=== PATIENT | male | born 1935 | race Caucasian/White ===

== ENCOUNTER 2022-06-18 20:33 | Inpatient (IN) | payer MEDICARE, OTHER ==
[~2022-06-18] VITALS: Ht 167.6 cm; Wt 94.9 kg
[2022-06-18 21:03] LABS: BASOPHILS % (AUTO) 0.6 % (0.0-2.0); EOSINOPHILS % (AUTO) 1.8 % (1.0-6.0); HEMATOCRIT 46.6 % (41-53); HEMOGLOBIN 14.6 g/dL (13.5-17.5); LYMPHOCYTES # (AUTO) 1.5 K/uL (1.0-4.8); LYMPHOCYTES % (AUTO) 19.8 % (22.0-44.0); MEAN CORPUSCULAR HEMOGLOBIN 27.9 pg (26.0-34.0); MEAN CORPUSCULAR HGB CONC 31.3 G/dL (31.0-37.0); MEAN CORPUSCULAR VOLUME 89 fL (80-100); MONOCYTES # (AUTO) 0.7 K/uL (0.1-1.0); MONOCYTES % (AUTO) 8.5 % (2.0-9.0); NEUTROPHILS # (AUTO) 5.4 K/uL (1.8-7.7); NEUTROPHILS % (AUTO) 69.3 % (40.0-70.0); PLATELET COUNT (AUTO) 219 K/uL (150-450); RED BLOOD CELL COUNT(AUTO) 5.23 MIL/uL (4.50-5.90)
[2022-06-18] MEDS ORDERED: IOHEXOL 350 MG/ML 100 ML VIAL ONE (21:05)
[2022-06-18] MEDS ORDERED: SODIUM CHLORIDE 0.9% 100 ML ONE (21:05)
[2022-06-18 21:14] LABS: CALCIUM, TOTAL 9.2 mg/dL (8.8-10.5); CREATININE 2.1 mg/dL (0.60-1.30); POTASSIUM 3.9 mmol/L (3.5-5.1)
[2022-06-18 21:15] LABS: PROTHROMBIN TIME 10.4 SEC (9.4-11.6)
[2022-06-18 21:20] LABS: ALBUMIN 3.3 g/dL (3.4-5.0); BILIRUBIN,TOTAL 0.5 mg/dL (0.1-1.0); TOTAL PROTEIN, SERUM 7.2 g/dL (6.4-8.2)
[2022-06-18 21:44] LABS: THYROID STIMULATING HORMONE 3.24 uIU/mL (0.36-3.74)
[2022-06-18 21:54] LABS: APPEARANCE,URINE CLEAR (CLEAR); BILIRUBIN,URINE NEGATIVE (NEGATIVE); GLUCOSE, URINE (UA) TRACE mg/dL (NEGATIVE); KETONES,URINE NEGATIVE (NEGATIVE); LEUKOCYTE ESTERASE ,URINE NEGATIVE (NEGATIVE); NITRATE,URINE NEGATIVE (NEGATIVE); OCCULT BLOOD,URINE TRACE (NEGATIVE); PROTEIN,URINE 300-600,SEE CONFIRM mg/dL (NEGATIVE); SPECIFIC GRAVITIY, URINE 1.028 (1.003-1.030); UROBILINOGEN,URINE <=1.0 mg/dL (<=1.0)
[2022-06-18 22:00] LABS: AMPHET/METH SCREEN,URINE NEGATIVE (NEGATIVE); BARBITURATE SCREEN, URINE NEGATIVE (NEGATIVE); BENZODIAZEPINES SCREEN,URINE NEGATIVE (NEGATIVE); CANNABINOID SCREEN,URINE NEGATIVE (NEGATIVE); COCAINE SCREEN,URINE NEGATIVE (NEGATIVE); METHADONE SCREEN, URINE NEGATIVE (NEGATIVE); OPIATE SCREEN,URINE NEGATIVE (NEGATIVE)
[2022-06-18] MEDS ORDERED: LEVOFLOXACIN 750 MG/D5% WATER 150 ML IV ONE (22:00)
[2022-06-18] MEDS ORDERED: ASPIRIN 300 MG RECTAL SUPPOSITORY PR ONE (22:00)
[2022-06-18 22:01] LABS: BACTERIA,URINE Rare /HPF (None Seen); SQUAMOUS EPITHELIAL CELL,UR Rare /LPF (None Seen); SULFOSALICYLIC ACID,URINE 3+ (Negative); WBC,URINE 0-2 /HPF (0-5)
[2022-06-18 22:02] LABS: PHENCYCLIDINE SCREEN,URINE NEGATIVE (NEGATIVE)
[2022-06-18 22:05] LABS: COVID AG,FIA SOURCE NASAL SWAB
[2022-06-18] MEDS ORDERED: FUROSEMIDE 40 MG/4 ML VIAL IVP ONE (22:30)
[2022-06-18] MEDS ORDERED: DEXTROSE 50%-WATER 25 GM/50 ML SYRINGE IVP PRN (22:45)
[2022-06-18] MEDS ORDERED: *CLINICAL-LEVOFLOXACIN IVPB DOSING CLINICAL ONE (23:00)
[2022-06-18 23:06] LABS: CHOL/HDL RATIO 4.4 (4.2-7.3)
[2022-06-18] MEDS: LEVOFLOXACIN 750 MG/D5% WATER 150 ML IV SCH (23:16)
[2022-06-19 00:42] LABS: ERYTHROCYTE SEDIMENTATION RATE 18 MM/HR (0-15)
[2022-06-19] MEDS ORDERED: AmLODIPine BESYLATE 5 MG TABLET PO SCH (18:00)
[2022-06-19] MEDS: ASPIRIN 300 MG RECTAL SUPPOSITORY PR SCH (20:00)
[2022-06-19 21:30] VITALS: BP 174/100
[2022-06-20 00:21] VITALS: BP 162/94
[2022-06-20 01:47] LABS: GLUCOMETER DEV NAME(LOC) 5N.1C; GLUCOSE,POINT OF CARE 111 MG/DL (70-110)
[2022-06-20 04:33] VITALS: BP 151/96
[2022-06-20 07:06] LABS: GLUCOMETER DEV NAME(LOC) 5N.1C; GLUCOSE,POINT OF CARE 96 MG/DL (70-110)
[2022-06-20 07:13] LABS: BASOPHILS % (AUTO) 0.2 % (0.0-2.0); EOSINOPHILS % (AUTO) 0.2 % (1.0-6.0); HEMATOCRIT 50.1 % (41-53); HEMOGLOBIN 15.5 g/dL (13.5-17.5); LYMPHOCYTES # (AUTO) 1.2 K/uL (1.0-4.8); LYMPHOCYTES % (AUTO) 12.1 % (22.0-44.0); MEAN CORPUSCULAR HEMOGLOBIN 28.1 pg (26.0-34.0); MEAN CORPUSCULAR VOLUME 91 fL (80-100); MONOCYTES % (AUTO) 9.5 % (2.0-9.0); NEUTROPHILS # (AUTO) 7.8 K/uL (1.8-7.7); PLATELET COUNT (AUTO) 215 K/uL (150-450); RED BLOOD CELL COUNT(AUTO) 5.53 MIL/uL (4.50-5.90); RED CELL DISTRIBUTION WIDTH 15.2 % (11.5-14.5)
[2022-06-20 07:33] LABS: ALBUMIN 2.8 g/dL (3.4-5.0); BILIRUBIN,TOTAL 1.1 mg/dL (0.1-1.0); CALCIUM, TOTAL 9.4 mg/dL (8.8-10.5); CREATININE 1.85 mg/dL (0.60-1.30); POTASSIUM 5.5 mmol/L (3.5-5.1)
[2022-06-20 08:20] VITALS: BP 148/93
[2022-06-20] MEDS: ASPIRIN 300 MG RECTAL SUPPOSITORY PR SCH (08:42)
[2022-06-20] MEDS ORDERED: PERFLUTREN PROTEIN-A MICROSPHERES 0.22 MG/ML 3 ML VIAL IVP ONE ×2 (08:45→16:34)
[2022-06-20] MEDS ORDERED: SODIUM CHLORIDE 0.9% 1,000 ML IV ONE (11:15)
[2022-06-20 12:00] VITALS: BP 138/94
[2022-06-20] MEDS: HEPARIN SODIUM,PORCINE 5,000 UNITS/ML VIAL SQ SCH ×3 (13:26→23:44)
[2022-06-20] MEDS: ATORVASTATIN CALCIUM 40 MG TABLET NG SCH (14:39)
[2022-06-20] MEDS: AmLODIPine BESYLATE 5 MG TABLET NG SCH (14:40)
[2022-06-20 14:49] LABS: ABG BASE EXCESS 5.6 mmol/L (-2.0-3.0); ABG CARBOXYHEMOGLOBIN 1.5 % (0.0-1.5); ABG HCO3 27.2 mmol/L (22.0-26.0); ABG METHEMOGLOBIN 0.3 % (0.0-1.5); ABG OXYGEN CONTENT 21.7 mL/dL (15.0-23.0); ABG OXYGEN SATURATION 97.5 % (95.0-98.0); ABG OXYHEMOGLOBIN 95.7 % (94.0-100.0); ABG PH 7.291 (7.35-7.450); ABG TOTAL HEMOGLOBIN 16.1 G/dL (12.0-18.0); SOURCE, BLOOD GAS ARTERIAL; TEMPERATURE, FAHRENHEIT, BG 98.1 FAHREN (96.0-98.6)
[2022-06-20 14:51] LABS: ABG PCO2 68 mmHg (35-45); O2 DEVICE,BLOOD GAS NC (ROOM AIR); SITE, BLOOD GAS LFT RADIAL
[2022-06-20 16:00] VITALS: BP 160/88
[2022-06-20 18:01] LABS: GLUCOMETER DEV NAME(LOC) 5S.1B; GLUCOSE,POINT OF CARE 98 MG/DL (70-110)
[2022-06-20 18:56] LABS: GLUCOMETER DEV NAME(LOC) 5N.1C; GLUCOSE,POINT OF CARE 102 MG/DL (70-110)
[2022-06-20 19:35] VITALS: BP 139/84
[2022-06-20 23:27] LABS: GLUCOMETER DEV NAME(LOC) 5S.1B; GLUCOSE,POINT OF CARE 107 MG/DL (70-110)
[2022-06-20] MEDS: LEVOFLOXACIN 750 MG/D5% WATER 150 ML IV SCH (23:43)
[2022-06-21] VITALS: BP 140/70
[2022-06-21 03:08] LABS: ABG BASE EXCESS 6.7 mmol/L (-2.0-3.0); ABG CARBOXYHEMOGLOBIN 0.3 % (0.0-1.5); ABG HCO3 28.3 mmol/L (22.0-26.0); ABG METHEMOGLOBIN 0.3 % (0.0-1.5); ABG OXYGEN CONTENT 21.3 mL/dL (15.0-23.0); ABG OXYGEN SATURATION 98.6 % (95.0-98.0); ABG PH 7.301 (7.35-7.450); ABG TOTAL HEMOGLOBIN 15.3 G/dL (12.0-18.0); PO2, ARTERIAL BG 137.1 mmHg (71.0-79.0); SOURCE, BLOOD GAS ARTERIAL; TEMPERATURE, FAHRENHEIT, BG 98.6 FAHREN (96.0-98.6)
[2022-06-21 03:09] LABS: ABG PCO2 69 mmHg (35-45); O2 DEVICE,BLOOD GAS BIPAP (ROOM AIR); SITE, BLOOD GAS RT RADIAL
[2022-06-21 03:55] VITALS: BP 133/82
[2022-06-21 08:03] VITALS: BP 159/79
[2022-06-21 08:41] LABS: GLUCOMETER DEV NAME(LOC) 5N.1C; GLUCOSE,POINT OF CARE 96 MG/DL (70-110)
[2022-06-21] MEDS: HEPARIN SODIUM,PORCINE 5,000 UNITS/ML VIAL SQ SCH ×2 (09:13→17:23)
[2022-06-21] MEDS: ATORVASTATIN CALCIUM 40 MG TABLET NG SCH (09:13)
[2022-06-21] MEDS: AmLODIPine BESYLATE 5 MG TABLET NG SCH (09:13)
[2022-06-21] MEDS: ASPIRIN 81 MG CHEWABLE TABLET NG SCH (09:14)
[2022-06-21 11:49] VITALS: BP 158/85
[2022-06-21] MEDS ORDERED: AmLODIPine BESYLATE 5 MG TABLET PO ONE (12:00)
[2022-06-21] MEDS ORDERED: FUROSEMIDE 20 MG/2 ML VIAL IVP ONE (12:30)
[2022-06-21 13:56] LABS: GLUCOMETER DEV NAME(LOC) 5N.1C; GLUCOSE,POINT OF CARE 107 MG/DL (70-110)
[2022-06-21 15:50] LABS: CALCIUM, TOTAL 9.1 mg/dL (8.8-10.5); CREATININE 2.64 mg/dL (0.60-1.30); POTASSIUM 4.6 mmol/L (3.5-5.1)
[2022-06-21 15:55] VITALS: BP 161/96
[2022-06-21 20:39] VITALS: BP 157/91
[2022-06-21] MEDS ORDERED: CARVEDILOL 3.125 MG TABLET PO SCH (21:00)
[2022-06-21 21:46] LABS: GLUCOMETER DEV NAME(LOC) 5N.3; GLUCOSE,POINT OF CARE 112 MG/DL (70-110)
[2022-06-22] MEDS: HEPARIN SODIUM,PORCINE 5,000 UNITS/ML VIAL SQ SCH ×4 (00:25→23:27)
[2022-06-22] MEDS: HydrALAZINE HCL 20 MG/ML VIAL IVP PRN (00:25)
[2022-06-22 00:30] VITALS: BP 179/99
[2022-06-22 00:51] LABS: GLUCOMETER DEV NAME(LOC) 5N.1C; GLUCOSE,POINT OF CARE 110 MG/DL (70-110)
[2022-06-22 04:55] VITALS: BP 162/85
[2022-06-22 06:43] LABS: CALCIUM, TOTAL 9.2 mg/dL (8.8-10.5); CREATININE 2.32 mg/dL (0.60-1.30); POTASSIUM 4.4 mmol/L (3.5-5.1)
[2022-06-22 06:56] LABS: GLUCOMETER DEV NAME(LOC) 5S.1B; GLUCOSE,POINT OF CARE 121 MG/DL (70-110)
[2022-06-22 08:22] VITALS: BP 159/100
[2022-06-22] MEDS: ASPIRIN 81 MG CHEWABLE TABLET NG SCH (08:49)
[2022-06-22] MEDS: ATORVASTATIN CALCIUM 40 MG TABLET NG SCH (08:49)
[2022-06-22] MEDS ORDERED: AmLODIPine BESYLATE 5 MG TABLET PO SCH (09:00)
[2022-06-22] MEDS ORDERED: AmLODIPine BESYLATE 5 MG TABLET NG SCH (09:00)
[2022-06-22 11:18] VITALS: BP 146/77
[2022-06-22 11:18] LABS: ABG BASE EXCESS 6.6 mmol/L (-2.0-3.0); ABG CARBOXYHEMOGLOBIN 0.8 % (0.0-1.5); ABG HCO3 28.1 mmol/L (22.0-26.0); ABG METHEMOGLOBIN 0.3 % (0.0-1.5); ABG OXYGEN CONTENT 20.7 mL/dL (15.0-23.0); ABG OXYGEN SATURATION 97.5 % (95.0-98.0); ABG OXYHEMOGLOBIN 96.4 % (94.0-100.0); ABG PH 7.294 (7.35-7.450); ABG TOTAL HEMOGLOBIN 15.2 G/dL (12.0-18.0); PO2, ARTERIAL BG 99.3 mmHg (71.0-79.0); SOURCE, BLOOD GAS ARTERIAL; TEMPERATURE, FAHRENHEIT, BG 98.3 FAHREN (96.0-98.6)
[2022-06-22 11:21] LABS: ABG PCO2 70 mmHg (35-45); SITE, BLOOD GAS RT BRACHIAL
[2022-06-22 11:22] LABS: O2 DEVICE,BLOOD GAS BIPAP (ROOM AIR); SPONTANEOUS VT, BG 517 ml
[2022-06-22 11:23] LABS: INSPIRATORY TIME, BG 0.9 SEC
[2022-06-22 11:52] LABS: GLUCOMETER DEV NAME(LOC) 5S.1B; GLUCOSE,POINT OF CARE 117 MG/DL (70-110)
[2022-06-22] MEDS: CARVEDILOL 6.25 MG TABLET PO SCH ×2 (13:46→20:21)
[2022-06-22 15:14] VITALS: BP 144/83
[2022-06-22 18:11] LABS: GLUCOMETER DEV NAME(LOC) 5S.1B; GLUCOSE,POINT OF CARE 112 MG/DL (70-110)
[2022-06-22 20:30] VITALS: BP 162/92
[2022-06-22 21:46] LABS: GLUCOMETER DEV NAME(LOC) 5S.1B; GLUCOSE,POINT OF CARE 132 MG/DL (70-110)
[2022-06-22] MEDS: LEVOFLOXACIN 750 MG/D5% WATER 150 ML IV SCH (23:26)
[2022-06-23] VITALS (7 sets, daily range): BP systolic 142–160; BP diastolic 76–111
[2022-06-23] MEDS: INSULIN LISPRO 100 UNITS/ML SQ PRN ×3 (06:12→17:30)
[2022-06-23 06:21] LABS: GLUCOMETER DEV NAME(LOC) 5S.2B; GLUCOSE,POINT OF CARE 156 MG/DL (70-110)
[2022-06-23] MEDS: ATORVASTATIN CALCIUM 40 MG TABLET NG SCH (08:48)
[2022-06-23] MEDS: ASPIRIN 81 MG CHEWABLE TABLET NG SCH (08:48)
[2022-06-23] MEDS: HEPARIN SODIUM,PORCINE 5,000 UNITS/ML VIAL SQ SCH ×2 (08:48→16:49)
[2022-06-23] MEDS: CARVEDILOL 6.25 MG TABLET PO SCH ×2 (08:48→20:26)
[2022-06-23 08:51] LABS: CALCIUM, TOTAL 9.6 mg/dL (8.8-10.5); CREATININE 2.11 mg/dL (0.60-1.30); POTASSIUM 4.4 mmol/L (3.5-5.1)
[2022-06-23 11:05] LABS: ABG BASE EXCESS 6.8 mmol/L (-2.0-3.0); ABG CARBOXYHEMOGLOBIN 0.3 % (0.0-1.5); ABG HCO3 28.5 mmol/L (22.0-26.0); ABG METHEMOGLOBIN 0.2 % (0.0-1.5); ABG OXYGEN CONTENT 20.8 mL/dL (15.0-23.0); ABG OXYGEN SATURATION 93.7 % (95.0-98.0); ABG OXYHEMOGLOBIN 93.2 % (94.0-100.0); ABG PCO2 61 mmHg (35-45); ABG PH 7.345 (7.35-7.450); ABG TOTAL HEMOGLOBIN 15.9 G/dL (12.0-18.0); SOURCE, BLOOD GAS ARTERIAL; TEMPERATURE, FAHRENHEIT, BG 97.8 FAHREN (96.0-98.6)
[2022-06-23 11:09] LABS: ABG A-A DIFF O2 147.5 mmHg (10-20.0); O2 DEVICE,BLOOD GAS BIPAP (ROOM AIR); SITE, BLOOD GAS RT RADIAL
[2022-06-23 11:10] LABS: SPONTANEOUS VT, BG 474 ml
[2022-06-23 17:36] LABS: GLUCOMETER DEV NAME(LOC) 5S.1B; GLUCOSE,POINT OF CARE 147 MG/DL (70-110)
[2022-06-23 18:56] LABS: GLUCOMETER DEV NAME(LOC) 5S.2B; GLUCOSE,POINT OF CARE 145 MG/DL (70-110)
[2022-06-24] MEDS: HEPARIN SODIUM,PORCINE 5,000 UNITS/ML VIAL SQ SCH ×4 (00:15→23:05)
[2022-06-24 04:04] VITALS: BP 159/85
[2022-06-24] MEDS: INSULIN LISPRO 100 UNITS/ML SQ PRN ×3 (06:09→20:50)
[2022-06-24 07:31] VITALS: BP 161/98
[2022-06-24] MEDS: ASPIRIN 81 MG CHEWABLE TABLET NG SCH (07:49)
[2022-06-24] MEDS: AmLODIPine BESYLATE 5 MG TABLET NG SCH (07:49)
[2022-06-24] MEDS: ATORVASTATIN CALCIUM 40 MG TABLET NG SCH (07:49)
[2022-06-24] MEDS: CARVEDILOL 6.25 MG TABLET PO SCH ×2 (07:49→20:49)
[2022-06-24] MEDS: FUROSEMIDE 20 MG/2 ML VIAL IVP SCH ×2 (10:13→20:49)
[2022-06-24 10:41] LABS: GLUCOMETER DEV NAME(LOC) 5S.1B; GLUCOSE,POINT OF CARE 127 MG/DL (70-110)
[2022-06-24 10:42] LABS: GLUCOMETER DEV NAME(LOC) 5S.1B; GLUCOSE,POINT OF CARE 154 MG/DL (70-110)
[2022-06-24 11:11] VITALS: BP 133/95
[2022-06-24 13:55] LABS: ABG METHEMOGLOBIN 0.3 % (0.0-1.5); ABG OXYGEN SATURATION 97.3 % (95.0-98.0); SOURCE, BLOOD GAS ARTERIAL; TEMPERATURE, FAHRENHEIT, BG 97.7 FAHREN (96.0-98.6)
[2022-06-24 14:13] LABS: ABG CARBOXYHEMOGLOBIN 0.9 % (0.0-1.5); ABG HCO3 32.3 mmol/L (22.0-26.0); ABG OXYGEN CONTENT 21.1 mL/dL (15.0-23.0); ABG OXYHEMOGLOBIN 96.1 % (94.0-100.0); ABG PCO2 59 mmHg (35-45); ABG PH 7.399 (7.35-7.450); ABG TOTAL HEMOGLOBIN 15.6 G/dL (12.0-18.0); PO2, ARTERIAL BG 89.5 mmHg (71.0-79.0)
[2022-06-24 14:14] LABS: O2 DEVICE,BLOOD GAS BIPAP (ROOM AIR); SITE, BLOOD GAS LFT RADIAL; SPONTANEOUS VT, BG 616 ml
[2022-06-24 14:15] LABS: INSPIRATORY TIME, BG 0.9 SEC
[2022-06-24 15:33] VITALS: BP 146/83
[2022-06-24] MEDS: SCOPOLAMINE HYDROBROMIDE 1 MG/72 HOUR PATCH TD SCH (17:16)
[2022-06-24 17:56] LABS: GLUCOMETER DEV NAME(LOC) 5S.2B; GLUCOSE,POINT OF CARE 159 MG/DL (70-110)
[2022-06-24 19:24] VITALS: BP 155/93
[2022-06-24 22:46] LABS: GLUCOMETER DEV NAME(LOC) 5S.2B; GLUCOSE,POINT OF CARE 154 MG/DL (70-110)
[2022-06-24 22:46] LABS: GLUCOMETER DEV NAME(LOC) 5S.1B; GLUCOSE,POINT OF CARE 139 MG/DL (70-110)
[2022-06-24] MEDS: LEVOFLOXACIN 750 MG/D5% WATER 150 ML IV SCH (23:04)
[2022-06-24] MEDS ORDERED: SODIUM CHLORIDE 0.9% 250 ML IV ONE (23:11)
[2022-06-24 23:25] VITALS: BP 139/99
[2022-06-25 04:28] VITALS: BP 156/86
[2022-06-25 06:11] LABS: GLUCOMETER DEV NAME(LOC) 5S.1B; GLUCOSE,POINT OF CARE 127 MG/DL (70-110)
[2022-06-25 07:01] LABS: BASOPHILS % (AUTO) 0.3 % (0.0-2.0); EOSINOPHILS % (AUTO) 0.9 % (1.0-6.0); HEMATOCRIT 49.5 % (41-53); HEMOGLOBIN 15.6 g/dL (13.5-17.5); LYMPHOCYTES # (AUTO) 0.8 K/uL (1.0-4.8); LYMPHOCYTES % (AUTO) 9.9 % (22.0-44.0); MEAN CORPUSCULAR HGB CONC 31.5 G/dL (31.0-37.0); MEAN CORPUSCULAR VOLUME 89 fL (80-100); MONOCYTES # (AUTO) 0.8 K/uL (0.1-1.0); MONOCYTES % (AUTO) 9.5 % (2.0-9.0); NEUTROPHILS # (AUTO) 6.6 K/uL (1.8-7.7); NEUTROPHILS % (AUTO) 79.4 % (40.0-70.0); PLATELET COUNT (AUTO) 226 K/uL (150-450); RED BLOOD CELL COUNT(AUTO) 5.58 MIL/uL (4.50-5.90)
[2022-06-25 07:23] LABS: ALBUMIN 2.2 g/dL (3.4-5.0); BILIRUBIN,TOTAL 0.4 mg/dL (0.1-1.0); CALCIUM, TOTAL 9.9 mg/dL (8.8-10.5); CREATININE 2.27 mg/dL (0.60-1.30); POTASSIUM 4.1 mmol/L (3.5-5.1); TOTAL PROTEIN, SERUM 6.6 g/dL (6.4-8.2)
[2022-06-25 07:45] VITALS: BP 153/88
[2022-06-25] MEDS: ATORVASTATIN CALCIUM 40 MG TABLET NG SCH (08:30)
[2022-06-25] MEDS: ASPIRIN 81 MG CHEWABLE TABLET NG SCH (08:30)
[2022-06-25] MEDS: CARVEDILOL 6.25 MG TABLET PO SCH ×2 (08:30→21:21)
[2022-06-25] MEDS: FUROSEMIDE 20 MG/2 ML VIAL IVP SCH ×2 (08:31→21:21)
[2022-06-25] MEDS: HEPARIN SODIUM,PORCINE 5,000 UNITS/ML VIAL SQ SCH ×2 (08:31→16:20)
[2022-06-25] MEDS: AmLODIPine BESYLATE 5 MG TABLET NG SCH (09:00)
[2022-06-25] MEDS ORDERED: *CLINICAL-AZTREONAM DOSING CLINICAL ONE (09:45)
[2022-06-25] MEDS ORDERED: AZTREONAM 1 GM in DEXTROSE 5%-WATER 50 ML IV ONE ×2 (10:00→16:00)
[2022-06-25] MEDS: ALBUTEROL SULFATE 2.5 MG/0.5 ML NEB SOLUTION NEB SCH ×4 (11:17→23:11)
[2022-06-25] MEDS: IPRATROPIUM BROMIDE 0.5 MG/2.5 ML NEB SOLUTION NEB SCH ×4 (11:17→23:11)
[2022-06-25] MEDS: ACETYLCYSTEINE 10% 100 MG/ML 4 ML NEB SOLUTION NEB SCH ×4 (11:17→23:11)
[2022-06-25 12:00] VITALS: BP 158/76
[2022-06-25] MEDS: EMPAGLIFLOZIN 10 MG TABLET PO SCH (12:44)
[2022-06-25 16:00] VITALS: BP 156/96
[2022-06-25] MEDS: INSULIN LISPRO 100 UNITS/ML SQ PRN ×2 (17:31→21:49)
[2022-06-25 17:32] LABS: GLUCOSE,POINT OF CARE 126 MG/DL (70-110)
[2022-06-25 20:00] VITALS: BP 151/77
[2022-06-26] VITALS: BP 149/87
[2022-06-26] MEDS ORDERED: SODIUM CHLORIDE 0.9% 250 ML IV ONE (00:51)
[2022-06-26] MEDS: HEPARIN SODIUM,PORCINE 5,000 UNITS/ML VIAL SQ SCH ×4 (00:55→23:19)
[2022-06-26] MEDS: AZTREONAM 0.5 GM in DEXTROSE 5%-WATER 50 ML IV SCH ×4 (00:59→23:19)
[2022-06-26] MEDS: ACETYLCYSTEINE 10% 100 MG/ML 4 ML NEB SOLUTION NEB SCH ×5 (02:51→21:00)
[2022-06-26] MEDS: ALBUTEROL SULFATE 2.5 MG/0.5 ML NEB SOLUTION NEB SCH ×5 (02:51→20:45)
[2022-06-26] MEDS: IPRATROPIUM BROMIDE 0.5 MG/2.5 ML NEB SOLUTION NEB SCH ×5 (02:51→20:45)
[2022-06-26 03:06] LABS: GLUCOSE,POINT OF CARE 148 MG/DL (70-110)
[2022-06-26 03:06] LABS: GLUCOSE,POINT OF CARE 151 MG/DL (70-110)
[2022-06-26 04:00] VITALS: BP 160/94
[2022-06-26 05:31] LABS: BASOPHILS % (AUTO) 0.2 % (0.0-2.0); EOSINOPHILS % (AUTO) 0.7 % (1.0-6.0); HEMATOCRIT 48.1 % (41-53); HEMOGLOBIN 15.3 g/dL (13.5-17.5); LYMPHOCYTES # (AUTO) 0.9 K/uL (1.0-4.8); LYMPHOCYTES % (AUTO) 8.1 % (22.0-44.0); MEAN CORPUSCULAR HEMOGLOBIN 28.2 pg (26.0-34.0); MEAN CORPUSCULAR HGB CONC 31.9 G/dL (31.0-37.0); MEAN CORPUSCULAR VOLUME 88 fL (80-100); MONOCYTES % (AUTO) 9.7 % (2.0-9.0); NEUTROPHILS # (AUTO) 8.5 K/uL (1.8-7.7); NEUTROPHILS % (AUTO) 81.3 % (40.0-70.0); PLATELET COUNT (AUTO) 250 K/uL (150-450); RED BLOOD CELL COUNT(AUTO) 5.45 MIL/uL (4.50-5.90); RED CELL DISTRIBUTION WIDTH 14.8 % (11.5-14.5)
[2022-06-26 05:48] LABS: ALBUMIN 2.4 g/dL (3.4-5.0); BILIRUBIN,TOTAL 0.4 mg/dL (0.1-1.0); CREATININE 2.64 mg/dL (0.60-1.30); MAGNESIUM 2.5 mg/dL (1.80-2.40); PHOSPHORUS 4.4 mg/dL (2.5-4.9); POTASSIUM 3.9 mmol/L (3.5-5.1); TOTAL PROTEIN, SERUM 6.8 g/dL (6.4-8.2)
[2022-06-26] MEDS: INSULIN LISPRO 100 UNITS/ML SQ PRN ×4 (06:32→20:35)
[2022-06-26 08:00] VITALS: BP 156/90
[2022-06-26] MEDS: AmLODIPine BESYLATE 5 MG TABLET NG SCH (08:25)
[2022-06-26] MEDS: ASPIRIN 81 MG CHEWABLE TABLET NG SCH (08:26)
[2022-06-26] MEDS: CARVEDILOL 6.25 MG TABLET PO SCH ×2 (08:26→20:08)
[2022-06-26] MEDS: ATORVASTATIN CALCIUM 40 MG TABLET NG SCH (08:26)
[2022-06-26] MEDS: EMPAGLIFLOZIN 10 MG TABLET PO SCH (08:26)
[2022-06-26] MEDS: FUROSEMIDE 20 MG/2 ML VIAL IVP SCH (08:28)
[2022-06-26 09:56] LABS: GLUCOSE,POINT OF CARE 162 MG/DL (70-110)
[2022-06-26 10:48] LABS: SOURCE, BLOOD GAS ARTERIAL; TEMPERATURE, FAHRENHEIT, BG 98.9 FAHREN (96.0-98.6)
[2022-06-26 10:51] LABS: ABG CARBOXYHEMOGLOBIN 0.3 % (0.0-1.5); ABG HCO3 30.7 mmol/L (22.0-26.0); ABG METHEMOGLOBIN 0.3 % (0.0-1.5); ABG OXYGEN CONTENT 21.5 mL/dL (15.0-23.0); ABG OXYGEN SATURATION 97.3 % (95.0-98.0); ABG OXYHEMOGLOBIN 96.7 % (94.0-100.0); ABG PCO2 59 mmHg (35-45); ABG TOTAL HEMOGLOBIN 15.8 G/dL (12.0-18.0); PO2, ARTERIAL BG 93.1 mmHg (71.0-79.0)
[2022-06-26 10:53] LABS: ABG A-A DIFF O2 414.9 mmHg (10-20.0); O2 DEVICE,BLOOD GAS BIPAP (ROOM AIR); SITE, BLOOD GAS LFT BRACHIAL
[2022-06-26 10:54] LABS: SPONTANEOUS VT, BG 776 ml
[2022-06-26 10:55] LABS: INSPIRATORY TIME, BG 0.9 SEC
[2022-06-26 14:09] VITALS: BP 168/76
[2022-06-26 14:16] LABS: TPROTEIN TIMED,URINE 281 mg/dL
[2022-06-26 14:17] LABS: COLLECTION TIME,URINE 24 HR; TPROTEIN URINE, 24HRS COLL 3091 mg/24Hr (0-165)
[2022-06-26 14:37] LABS: CREATININE,SERUM FOR CRCL 2.64 mg/dL (0.60-1.30); CREATININE,URINE 68.6 mg/dL (30.0-125.0)
[2022-06-26 16:00] VITALS: BP 141/77
[2022-06-26 19:50] LABS: GLUCOSE,POINT OF CARE 183 MG/DL (70-110)
[2022-06-26 19:55] LABS: GLUCOSE,POINT OF CARE 163 MG/DL (70-110)
[2022-06-26 20:00] VITALS: BP 154/92
[2022-06-26 21:26] LABS: GLUCOSE,POINT OF CARE 175 MG/DL (70-110)
[2022-06-26] MEDS: LEVOFLOXACIN 750 MG/D5% WATER 150 ML IV SCH (23:55)
[2022-06-27] VITALS: BP 164/90
[2022-06-27] MEDS: ACETYLCYSTEINE 10% 100 MG/ML 4 ML NEB SOLUTION NEB SCH (00:09)
[2022-06-27] MEDS: IPRATROPIUM BROMIDE 0.5 MG/2.5 ML NEB SOLUTION NEB SCH ×7 (00:09→22:36)
[2022-06-27] MEDS: ALBUTEROL SULFATE 2.5 MG/0.5 ML NEB SOLUTION NEB SCH ×7 (00:09→22:35)
[2022-06-27] MEDS: ACETYLCYSTEINE 20% 200 MG/ML 4 ML NEB SOLUTION NEB SCH ×6 (02:04→22:36)
[2022-06-27 04:00] VITALS: BP 144/91
[2022-06-27 05:55] LABS: BASOPHILS % (AUTO) 0.4 % (0.0-2.0); EOSINOPHILS % (AUTO) 1.2 % (1.0-6.0); HEMATOCRIT 47.6 % (41-53); HEMOGLOBIN 14.8 g/dL (13.5-17.5); LYMPHOCYTES # (AUTO) 0.9 K/uL (1.0-4.8); LYMPHOCYTES % (AUTO) 8.1 % (22.0-44.0); MEAN CORPUSCULAR HEMOGLOBIN 27.7 pg (26.0-34.0); MEAN CORPUSCULAR HGB CONC 31.2 G/dL (31.0-37.0); MEAN CORPUSCULAR VOLUME 89 fL (80-100); MONOCYTES # (AUTO) 1.3 K/uL (0.1-1.0); NEUTROPHILS # (AUTO) 9.2 K/uL (1.8-7.7); NEUTROPHILS % (AUTO) 79.3 % (40.0-70.0); PLATELET COUNT (AUTO) 239 K/uL (150-450); RED BLOOD CELL COUNT(AUTO) 5.35 MIL/uL (4.50-5.90)
[2022-06-27] MEDS: INSULIN LISPRO 100 UNITS/ML SQ PRN ×4 (05:57→21:46)
[2022-06-27 06:07] LABS: ALBUMIN 2.1 g/dL (3.4-5.0); BILIRUBIN,TOTAL 0.4 mg/dL (0.1-1.0); CALCIUM, TOTAL 9.7 mg/dL (8.8-10.5); CREATININE 3.14 mg/dL (0.60-1.30); POTASSIUM 3.8 mmol/L (3.5-5.1); TOTAL PROTEIN, SERUM 6.4 g/dL (6.4-8.2)
[2022-06-27 08:00] VITALS: BP 145/58
[2022-06-27] MEDS: SCOPOLAMINE HYDROBROMIDE 1 MG/72 HOUR PATCH TD SCH (08:12)
[2022-06-27] MEDS: ASPIRIN 81 MG CHEWABLE TABLET NG SCH (08:13)
[2022-06-27] MEDS: CARVEDILOL 6.25 MG TABLET PO SCH ×2 (08:14→21:18)
[2022-06-27] MEDS: ATORVASTATIN CALCIUM 40 MG TABLET NG SCH (08:14)
[2022-06-27] MEDS: AmLODIPine BESYLATE 5 MG TABLET NG SCH (08:14)
[2022-06-27] MEDS: HEPARIN SODIUM,PORCINE 5,000 UNITS/ML VIAL SQ SCH ×3 (08:14→23:59)
[2022-06-27 09:11] LABS: GLUCOSE,POINT OF CARE 145 MG/DL (70-110)
[2022-06-27] MEDS: AZTREONAM 0.5 GM in DEXTROSE 5%-WATER 50 ML IV SCH ×3 (09:44→23:58)
[2022-06-27 12:00] VITALS: BP 148/82
[2022-06-27 14:31] LABS: GLUCOSE,POINT OF CARE 160 MG/DL (70-110)
[2022-06-27 16:00] VITALS: BP 150/85
[2022-06-27 20:00] VITALS: BP 144/84
[2022-06-27 20:10] LABS: GLUCOSE,POINT OF CARE 165 MG/DL (70-110)
[2022-06-27 20:37] LABS: ABG BASE EXCESS 11.7 mmol/L (-2.0-3.0); ABG CARBOXYHEMOGLOBIN 0.6 % (0.0-1.5); ABG HCO3 33.1 mmol/L (22.0-26.0); ABG METHEMOGLOBIN 0.3 % (0.0-1.5); ABG OXYGEN CONTENT 19.6 mL/dL (15.0-23.0); ABG OXYGEN SATURATION 91.9 % (95.0-98.0); ABG OXYHEMOGLOBIN 91.1 % (94.0-100.0); ABG PCO2 57 mmHg (35-45); ABG TOTAL HEMOGLOBIN 15.3 G/dL (12.0-18.0); PO2, ARTERIAL BG 60.3 mmHg (71.0-79.0); SOURCE, BLOOD GAS ARTERIAL; TEMPERATURE, FAHRENHEIT, BG 98.6 FAHREN (96.0-98.6)
[2022-06-27 20:42] LABS: ABG A-A DIFF O2 304.7 mmHg (10-20.0); SITE, BLOOD GAS LFT RADIAL
[2022-06-27 20:43] LABS: O2 DEVICE,BLOOD GAS HIGH FLOW (ROOM AIR)
[2022-06-27] MEDS: FUROSEMIDE 20 MG/2 ML VIAL IVP SCH (21:18)
[2022-06-27] MEDS: HydrALAZINE HCL 20 MG/ML VIAL IVP PRN (23:58)
[2022-06-28] VITALS: BP 174/78
[2022-06-28 02:26] LABS: GLUCOSE,POINT OF CARE 151 MG/DL (70-110)
[2022-06-28] MEDS: IPRATROPIUM BROMIDE 0.5 MG/2.5 ML NEB SOLUTION NEB SCH ×6 (03:32→23:29)
[2022-06-28] MEDS: ACETYLCYSTEINE 20% 200 MG/ML 4 ML NEB SOLUTION NEB SCH ×6 (03:32→23:29)
[2022-06-28] MEDS: ALBUTEROL SULFATE 2.5 MG/0.5 ML NEB SOLUTION NEB SCH ×6 (03:32→23:29)
[2022-06-28 04:00] VITALS: BP 161/83
[2022-06-28 05:20] LABS: BASOPHILS % (AUTO) 0.6 % (0.0-2.0); EOSINOPHILS % (AUTO) 1.8 % (1.0-6.0); HEMATOCRIT 47.9 % (41-53); LYMPHOCYTES % (AUTO) 8.2 % (22.0-44.0); MEAN CORPUSCULAR HEMOGLOBIN 27.6 pg (26.0-34.0); MEAN CORPUSCULAR HGB CONC 31.3 G/dL (31.0-37.0); MEAN CORPUSCULAR VOLUME 88 fL (80-100); MONOCYTES # (AUTO) 1.3 K/uL (0.1-1.0); MONOCYTES % (AUTO) 10.8 % (2.0-9.0); NEUTROPHILS # (AUTO) 9.2 K/uL (1.8-7.7); NEUTROPHILS % (AUTO) 78.6 % (40.0-70.0); PLATELET COUNT (AUTO) 254 K/uL (150-450); RED BLOOD CELL COUNT(AUTO) 5.45 MIL/uL (4.50-5.90); RED CELL DISTRIBUTION WIDTH 14.4 % (11.5-14.5)
[2022-06-28 05:35] LABS: ALBUMIN 2.2 g/dL (3.4-5.0); BILIRUBIN,TOTAL 0.4 mg/dL (0.1-1.0); CALCIUM, TOTAL 9.8 mg/dL (8.8-10.5); CREATININE 2.97 mg/dL (0.60-1.30); POTASSIUM 3.7 mmol/L (3.5-5.1); TOTAL PROTEIN, SERUM 6.5 g/dL (6.4-8.2)
[2022-06-28 08:00] VITALS: BP 170/97
[2022-06-28] MEDS: AZTREONAM 0.5 GM in DEXTROSE 5%-WATER 50 ML IV SCH ×3 (08:04→23:26)
[2022-06-28] MEDS: ASPIRIN 81 MG CHEWABLE TABLET NG SCH (08:04)
[2022-06-28] MEDS: CARVEDILOL 6.25 MG TABLET PO SCH ×2 (08:05→21:05)
[2022-06-28] MEDS: HEPARIN SODIUM,PORCINE 5,000 UNITS/ML VIAL SQ SCH ×3 (08:05→23:51)
[2022-06-28] MEDS: ATORVASTATIN CALCIUM 40 MG TABLET NG SCH (08:05)
[2022-06-28] MEDS: AmLODIPine BESYLATE 5 MG TABLET NG SCH (08:05)
[2022-06-28] MEDS: FUROSEMIDE 20 MG/2 ML VIAL IVP SCH ×2 (08:05→21:05)
[2022-06-28 11:01] LABS: GLUCOSE,POINT OF CARE 135 MG/DL (70-110)
[2022-06-28] MEDS: INSULIN LISPRO 100 UNITS/ML SQ PRN ×2 (11:35→16:54)
[2022-06-28 12:00] VITALS: BP 132/75
[2022-06-28 16:00] VITALS: BP 141/94
[2022-06-28 17:06] LABS: GLUCOSE,POINT OF CARE 165 MG/DL (70-110)
[2022-06-28 17:07] LABS: GLUCOSE,POINT OF CARE 157 MG/DL (70-110)
[2022-06-28 20:00] VITALS: BP 167/84
[2022-06-28] MEDS: HydrALAZINE HCL 20 MG/ML VIAL IVP PRN (21:05)
[2022-06-28 21:36] LABS: GLUCOSE,POINT OF CARE 156 MG/DL (70-110)
[2022-06-28] MEDS: LEVOFLOXACIN 750 MG/D5% WATER 150 ML IV SCH (23:24)
[2022-06-29] VITALS: BP 136/77
[2022-06-29] MEDS: ACETYLCYSTEINE 20% 200 MG/ML 4 ML NEB SOLUTION NEB SCH ×6 (03:05→23:26)
[2022-06-29] MEDS: ALBUTEROL SULFATE 2.5 MG/0.5 ML NEB SOLUTION NEB SCH ×6 (03:05→23:26)
[2022-06-29] MEDS: IPRATROPIUM BROMIDE 0.5 MG/2.5 ML NEB SOLUTION NEB SCH ×6 (03:05→23:26)
[2022-06-29 04:00] VITALS: BP 141/91
[2022-06-29] MEDS: INSULIN LISPRO 100 UNITS/ML SQ PRN ×4 (06:25→20:44)
[2022-06-29 06:36] LABS: GLUCOSE,POINT OF CARE 155 MG/DL (70-110)
[2022-06-29 06:41] LABS: ALBUMIN 2.2 g/dL (3.4-5.0); BILIRUBIN,TOTAL 0.6 mg/dL (0.1-1.0); CALCIUM, TOTAL 9.2 mg/dL (8.8-10.5); CREATININE 3.12 mg/dL (0.60-1.30); POTASSIUM 3.5 mmol/L (3.5-5.1); TOTAL PROTEIN, SERUM 6.4 g/dL (6.4-8.2)
[2022-06-29 06:42] LABS: BASOPHILS % (AUTO) 0.2 % (0.0-2.0); EOSINOPHILS % (AUTO) 1.7 % (1.0-6.0); HEMATOCRIT 47.5 % (41-53); HEMOGLOBIN 14.7 g/dL (13.5-17.5); LYMPHOCYTES % (AUTO) 7.4 % (22.0-44.0); MEAN CORPUSCULAR HEMOGLOBIN 27.5 pg (26.0-34.0); MEAN CORPUSCULAR VOLUME 89 fL (80-100); MONOCYTES # (AUTO) 1.4 K/uL (0.1-1.0); MONOCYTES % (AUTO) 10.7 % (2.0-9.0); NEUTROPHILS # (AUTO) 10.4 K/uL (1.8-7.7); PLATELET COUNT (AUTO) 258 K/uL (150-450); RED BLOOD CELL COUNT(AUTO) 5.35 MIL/uL (4.50-5.90); RED CELL DISTRIBUTION WIDTH 14.5 % (11.5-14.5)
[2022-06-29 08:00] VITALS: BP 166/111
[2022-06-29 08:10] LABS: MAGNESIUM 2.3 mg/dL (1.80-2.40)
[2022-06-29] MEDS: AmLODIPine BESYLATE 5 MG TABLET NG SCH (08:13)
[2022-06-29] MEDS: CARVEDILOL 6.25 MG TABLET PO SCH ×2 (08:13→20:43)
[2022-06-29] MEDS: ASPIRIN 81 MG CHEWABLE TABLET NG SCH (08:13)
[2022-06-29] MEDS: ATORVASTATIN CALCIUM 40 MG TABLET NG SCH (08:13)
[2022-06-29] MEDS: AZTREONAM 0.5 GM in DEXTROSE 5%-WATER 50 ML IV SCH ×2 (08:14→15:15)
[2022-06-29] MEDS: HEPARIN SODIUM,PORCINE 5,000 UNITS/ML VIAL SQ SCH ×2 (08:14→15:15)
[2022-06-29] MEDS: FUROSEMIDE 20 MG/2 ML VIAL IVP SCH (08:14)
[2022-06-29 12:00] VITALS: BP 146/84
[2022-06-29] MEDS: HydrALAZINE HCL 20 MG/ML VIAL IVP PRN (13:46)
[2022-06-29 16:00] VITALS: BP 136/93
[2022-06-29] MEDS ORDERED: SODIUM CHLORIDE 0.9% 250 ML IV ONE (17:03)
[2022-06-29 20:00] VITALS: BP 135/69
[2022-06-30] VITALS: BP 141/91
[2022-06-30] MEDS: AZTREONAM 0.5 GM in DEXTROSE 5%-WATER 50 ML IV SCH ×3 (00:15→16:04)
[2022-06-30] MEDS: HEPARIN SODIUM,PORCINE 5,000 UNITS/ML VIAL SQ SCH ×3 (00:15→16:04)
[2022-06-30] MEDS: ALBUTEROL SULFATE 2.5 MG/0.5 ML NEB SOLUTION NEB SCH ×6 (03:47→23:04)
[2022-06-30] MEDS: ACETYLCYSTEINE 20% 200 MG/ML 4 ML NEB SOLUTION NEB SCH ×6 (03:47→23:04)
[2022-06-30] MEDS: IPRATROPIUM BROMIDE 0.5 MG/2.5 ML NEB SOLUTION NEB SCH ×6 (03:48→23:04)
[2022-06-30 03:56] LABS: GLUCOSE,POINT OF CARE 156 MG/DL (70-110)
[2022-06-30 03:56] LABS: GLUCOSE,POINT OF CARE 163 MG/DL (70-110)
[2022-06-30 03:56] LABS: GLUCOSE,POINT OF CARE 141 MG/DL (70-110)
[2022-06-30 04:00] VITALS: BP 132/69
[2022-06-30 05:32] LABS: BASOPHILS % (AUTO) 0.4 % (0.0-2.0); EOSINOPHILS % (AUTO) 2.2 % (1.0-6.0); HEMATOCRIT 46.7 % (41-53); HEMOGLOBIN 14.6 g/dL (13.5-17.5); LYMPHOCYTES # (AUTO) 0.8 K/uL (1.0-4.8); LYMPHOCYTES % (AUTO) 6.4 % (22.0-44.0); MEAN CORPUSCULAR HEMOGLOBIN 27.5 pg (26.0-34.0); MEAN CORPUSCULAR HGB CONC 31.3 G/dL (31.0-37.0); MEAN CORPUSCULAR VOLUME 88 fL (80-100); MONOCYTES # (AUTO) 1.2 K/uL (0.1-1.0); MONOCYTES % (AUTO) 9.4 % (2.0-9.0); NEUTROPHILS # (AUTO) 10.4 K/uL (1.8-7.7); NEUTROPHILS % (AUTO) 81.6 % (40.0-70.0); PLATELET COUNT (AUTO) 258 K/uL (150-450); RED BLOOD CELL COUNT(AUTO) 5.32 MIL/uL (4.50-5.90); RED CELL DISTRIBUTION WIDTH 14.8 % (11.5-14.5)
[2022-06-30 05:46] LABS: ALBUMIN 2.2 g/dL (3.4-5.0); BILIRUBIN,TOTAL 0.6 mg/dL (0.1-1.0); CALCIUM, TOTAL 9.4 mg/dL (8.8-10.5); CREATININE 3.07 mg/dL (0.60-1.30); POTASSIUM 3.6 mmol/L (3.5-5.1); TOTAL PROTEIN, SERUM 6.5 g/dL (6.4-8.2)
[2022-06-30] MEDS: INSULIN LISPRO 100 UNITS/ML SQ PRN ×3 (05:46→17:03)
[2022-06-30 07:04] LABS: MAGNESIUM 2.6 mg/dL (1.80-2.40)
[2022-06-30 08:00] VITALS: BP 157/92
[2022-06-30 08:26] LABS: GLUCOSE,POINT OF CARE 147 MG/DL (70-110)
[2022-06-30] MEDS ORDERED: SODIUM CHLORIDE 0.9% 500 ML IV ONE (08:30)
[2022-06-30] MEDS: AmLODIPine BESYLATE 5 MG TABLET NG SCH (09:00)
[2022-06-30] MEDS: ATORVASTATIN CALCIUM 40 MG TABLET NG SCH (09:00)
[2022-06-30] MEDS: ASPIRIN 81 MG CHEWABLE TABLET NG SCH (09:00)
[2022-06-30] MEDS: SCOPOLAMINE HYDROBROMIDE 1 MG/72 HOUR PATCH TD SCH (09:00)
[2022-06-30] MEDS: CARVEDILOL 6.25 MG TABLET PO SCH ×2 (09:00→20:07)
[2022-06-30 12:00] VITALS: BP 146/54
[2022-06-30 16:00] VITALS: BP 138/76
[2022-06-30 16:56] LABS: GLUCOSE,POINT OF CARE 141 MG/DL (70-110)
[2022-06-30 16:56] LABS: GLUCOSE,POINT OF CARE 153 MG/DL (70-110)
[2022-06-30 20:00] VITALS: BP 143/63
[2022-06-30] MEDS: LEVOFLOXACIN 500 MG/D5% WATER 100 ML IV SCH (23:30)
[2022-07-01] VITALS: BP 132/65
[2022-07-01] MEDS: HEPARIN SODIUM,PORCINE 5,000 UNITS/ML VIAL SQ SCH ×3 (01:13→15:43)
[2022-07-01] MEDS: AZTREONAM 0.5 GM in DEXTROSE 5%-WATER 50 ML IV SCH ×4 (01:13→23:55)
[2022-07-01] MEDS: ALBUTEROL SULFATE 2.5 MG/0.5 ML NEB SOLUTION NEB SCH ×6 (03:22→22:35)
[2022-07-01] MEDS: IPRATROPIUM BROMIDE 0.5 MG/2.5 ML NEB SOLUTION NEB SCH ×6 (03:22→22:35)
[2022-07-01] MEDS: ACETYLCYSTEINE 20% 200 MG/ML 4 ML NEB SOLUTION NEB SCH ×6 (03:23→22:36)
[2022-07-01 04:00] VITALS: BP 131/73
[2022-07-01 05:33] LABS: BASOPHILS % (AUTO) 0.4 % (0.0-2.0); EOSINOPHILS % (AUTO) 1.9 % (1.0-6.0); HEMATOCRIT 44.4 % (41-53); HEMOGLOBIN 13.9 g/dL (13.5-17.5); LYMPHOCYTES # (AUTO) 0.8 K/uL (1.0-4.8); LYMPHOCYTES % (AUTO) 6.6 % (22.0-44.0); MEAN CORPUSCULAR HEMOGLOBIN 27.7 pg (26.0-34.0); MEAN CORPUSCULAR HGB CONC 31.4 G/dL (31.0-37.0); MEAN CORPUSCULAR VOLUME 88 fL (80-100); NEUTROPHILS # (AUTO) 10.4 K/uL (1.8-7.7); NEUTROPHILS % (AUTO) 83.1 % (40.0-70.0); PLATELET COUNT (AUTO) 247 K/uL (150-450); RED BLOOD CELL COUNT(AUTO) 5.03 MIL/uL (4.50-5.90); RED CELL DISTRIBUTION WIDTH 14.8 % (11.5-14.5)
[2022-07-01 05:48] LABS: ALBUMIN 1.9 g/dL (3.4-5.0); BILIRUBIN,TOTAL 0.5 mg/dL (0.1-1.0); CALCIUM, TOTAL 8.6 mg/dL (8.8-10.5); CREATININE 2.86 mg/dL (0.60-1.30); POTASSIUM 3.7 mmol/L (3.5-5.1); TOTAL PROTEIN, SERUM 5.9 g/dL (6.4-8.2)
[2022-07-01] MEDS ORDERED: SODIUM CHLORIDE 0.9% 100 ML ONE (07:07)
[2022-07-01] MEDS ORDERED: IOHEXOL 350 MG/ML 100 ML VIAL ONE (07:07)
[2022-07-01 08:00] VITALS: BP 133/80
[2022-07-01] MEDS: ASPIRIN 81 MG CHEWABLE TABLET NG SCH (09:14)
[2022-07-01] MEDS: CARVEDILOL 6.25 MG TABLET PO SCH ×2 (09:14→20:53)
[2022-07-01] MEDS: AmLODIPine BESYLATE 5 MG TABLET NG SCH (09:14)
[2022-07-01] MEDS: ATORVASTATIN CALCIUM 40 MG TABLET NG SCH (09:14)
[2022-07-01] MEDS ORDERED: SODIUM CHLORIDE 0.9% 500 ML IV ONE (10:00)
[2022-07-01 12:00] VITALS: BP 136/72
[2022-07-01 13:21] LABS: GLUCOSE,POINT OF CARE 140 MG/DL (70-110)
[2022-07-01 13:21] LABS: GLUCOSE,POINT OF CARE 132 MG/DL (70-110)
[2022-07-01 13:47] LABS: GLUCOSE,POINT OF CARE 159 MG/DL (70-110)
[2022-07-01] MEDS: INSULIN LISPRO 100 UNITS/ML SQ PRN ×3 (14:02→22:14)
[2022-07-01 16:00] VITALS: BP 137/78
[2022-07-01 16:30] LABS: GLUCOSE,POINT OF CARE 147 MG/DL (70-110)
[2022-07-01 20:00] VITALS: BP 150/89
[2022-07-01 23:02] LABS: GLUCOSE,POINT OF CARE 149 MG/DL (70-110)
[2022-07-01] MEDS ORDERED: SODIUM CHLORIDE 0.9% 250 ML IV ONE (23:58)
[2022-07-02] VITALS: BP 132/77
[2022-07-02] MEDS: HEPARIN SODIUM,PORCINE 5,000 UNITS/ML VIAL SQ SCH ×3 (00:06→15:14)
[2022-07-02] MEDS: ALBUTEROL SULFATE 2.5 MG/0.5 ML NEB SOLUTION NEB SCH ×6 (03:16→22:38)
[2022-07-02] MEDS: IPRATROPIUM BROMIDE 0.5 MG/2.5 ML NEB SOLUTION NEB SCH ×6 (03:16→22:38)
[2022-07-02] MEDS: ACETYLCYSTEINE 20% 200 MG/ML 4 ML NEB SOLUTION NEB SCH ×6 (03:16→22:38)
[2022-07-02 04:00] VITALS: BP 125/61
[2022-07-02 05:32] LABS: BASOPHILS % (AUTO) 0.2 % (0.0-2.0); EOSINOPHILS % (AUTO) 1.1 % (1.0-6.0); HEMATOCRIT 45.6 % (41-53); HEMOGLOBIN 14.1 g/dL (13.5-17.5); LYMPHOCYTES # (AUTO) 0.9 K/uL (1.0-4.8); LYMPHOCYTES % (AUTO) 6.2 % (22.0-44.0); MEAN CORPUSCULAR HEMOGLOBIN 27.5 pg (26.0-34.0); MEAN CORPUSCULAR HGB CONC 31.1 G/dL (31.0-37.0); MEAN CORPUSCULAR VOLUME 89 fL (80-100); MONOCYTES # (AUTO) 1.1 K/uL (0.1-1.0); MONOCYTES % (AUTO) 7.5 % (2.0-9.0); PLATELET COUNT (AUTO) 280 K/uL (150-450); RED BLOOD CELL COUNT(AUTO) 5.14 MIL/uL (4.50-5.90); RED CELL DISTRIBUTION WIDTH 15.2 % (11.5-14.5)
[2022-07-02 05:49] LABS: CALCIUM, TOTAL 9.2 mg/dL (8.8-10.5); CREATININE 2.85 mg/dL (0.60-1.30)
[2022-07-02] MEDS: INSULIN LISPRO 100 UNITS/ML SQ PRN ×3 (06:56→21:53)
[2022-07-02 07:16] LABS: GLUCOSE,POINT OF CARE 177 MG/DL (70-110)
[2022-07-02] MEDS: AZTREONAM 0.5 GM in DEXTROSE 5%-WATER 50 ML IV SCH ×2 (07:48→15:14)
[2022-07-02 08:00] VITALS: BP 136/71
[2022-07-02] MEDS: ATORVASTATIN CALCIUM 40 MG TABLET NG SCH (09:03)
[2022-07-02] MEDS: CARVEDILOL 6.25 MG TABLET PO SCH ×2 (09:03→21:27)
[2022-07-02] MEDS: ASPIRIN 81 MG CHEWABLE TABLET NG SCH (09:03)
[2022-07-02] MEDS: AmLODIPine BESYLATE 5 MG TABLET NG SCH (09:03)
[2022-07-02] MEDS ORDERED: SODIUM CHLORIDE 0.9% 1,000 ML IV ONE (11:15)
[2022-07-02 11:36] LABS: GLUCOSE,POINT OF CARE 169 MG/DL (70-110)
[2022-07-02 12:00] VITALS: BP 121/70
[2022-07-02 16:00] VITALS: BP 127/68
[2022-07-02 16:47] LABS: GLUCOSE,POINT OF CARE 150 MG/DL (70-110)
[2022-07-02 21:08] VITALS: BP 132/74
[2022-07-02 22:01] LABS: GLUCOSE,POINT OF CARE 148 MG/DL (70-110)
[2022-07-02] MEDS: LEVOFLOXACIN 500 MG/D5% WATER 100 ML IV SCH (22:57)
[2022-07-03] VITALS: BP 136/76
[2022-07-03] MEDS: AZTREONAM 0.5 GM in DEXTROSE 5%-WATER 50 ML IV SCH ×4 (00:17→23:40)
[2022-07-03] MEDS: HEPARIN SODIUM,PORCINE 5,000 UNITS/ML VIAL SQ SCH ×4 (00:18→23:40)
[2022-07-03] MEDS: IPRATROPIUM BROMIDE 0.5 MG/2.5 ML NEB SOLUTION NEB SCH ×6 (03:12→22:29)
[2022-07-03] MEDS: ACETYLCYSTEINE 20% 200 MG/ML 4 ML NEB SOLUTION NEB SCH ×6 (03:12→22:28)
[2022-07-03] MEDS: ALBUTEROL SULFATE 2.5 MG/0.5 ML NEB SOLUTION NEB SCH ×6 (03:12→22:29)
[2022-07-03 04:00] VITALS: BP 126/83
[2022-07-03 08:00] VITALS: BP 140/89
[2022-07-03] MEDS: CARVEDILOL 6.25 MG TABLET PO SCH ×2 (09:41→21:15)
[2022-07-03] MEDS: ATORVASTATIN CALCIUM 40 MG TABLET NG SCH (09:41)
[2022-07-03] MEDS: AmLODIPine BESYLATE 5 MG TABLET NG SCH (09:41)
[2022-07-03] MEDS: ASPIRIN 81 MG CHEWABLE TABLET NG SCH (09:41)
[2022-07-03] MEDS: SCOPOLAMINE HYDROBROMIDE 1 MG/72 HOUR PATCH TD SCH (09:42)
[2022-07-03 09:57] LABS: GLUCOSE,POINT OF CARE 155 MG/DL (70-110)
[2022-07-03 10:54] LABS: CREATININE 2.54 mg/dL (0.60-1.30)
[2022-07-03 12:00] VITALS: BP 136/79
[2022-07-03] MEDS: INSULIN LISPRO 100 UNITS/ML SQ PRN (12:40)
[2022-07-03 16:00] VITALS: BP 116/61
[2022-07-03] MEDS: SODIUM CHLORIDE 0.9% 1,000 ML IV SCH (17:02)
[2022-07-03 20:00] VITALS: BP 161/87
[2022-07-03 21:41] LABS: GLUCOSE,POINT OF CARE 121 MG/DL (70-110)
[2022-07-03 21:41] LABS: GLUCOSE,POINT OF CARE 154 MG/DL (70-110)
[2022-07-03 21:46] LABS: GLUCOSE,POINT OF CARE 121 MG/DL (70-110)
[2022-07-04] VITALS: BP 133/83
[2022-07-04] MEDS: ALBUTEROL SULFATE 2.5 MG/0.5 ML NEB SOLUTION NEB SCH ×5 (02:52→19:22)
[2022-07-04] MEDS: IPRATROPIUM BROMIDE 0.5 MG/2.5 ML NEB SOLUTION NEB SCH ×5 (02:52→19:22)
[2022-07-04] MEDS: ACETYLCYSTEINE 20% 200 MG/ML 4 ML NEB SOLUTION NEB SCH ×5 (02:53→19:22)
[2022-07-04 04:00] VITALS: BP 121/75
[2022-07-04] MEDS: SODIUM CHLORIDE 0.9% 1,000 ML IV SCH (05:18)
[2022-07-04 06:31] LABS: GLUCOSE,POINT OF CARE 110 MG/DL (70-110)
[2022-07-04 08:00] VITALS: BP 141/86
[2022-07-04] MEDS: AZTREONAM 0.5 GM in DEXTROSE 5%-WATER 50 ML IV SCH ×2 (08:10→15:49)
[2022-07-04] MEDS: ATORVASTATIN CALCIUM 40 MG TABLET NG SCH (08:11)
[2022-07-04] MEDS: HEPARIN SODIUM,PORCINE 5,000 UNITS/ML VIAL SQ SCH ×2 (08:11→15:49)
[2022-07-04] MEDS: AmLODIPine BESYLATE 5 MG TABLET NG SCH (08:11)
[2022-07-04] MEDS: CARVEDILOL 6.25 MG TABLET PO SCH (08:11)
[2022-07-04] MEDS: ASPIRIN 81 MG CHEWABLE TABLET NG SCH (08:11)
[2022-07-04 09:42] LABS: BASOPHILS % (AUTO) 0.5 % (0.0-2.0); EOSINOPHILS % (AUTO) 1.3 % (1.0-6.0); HEMATOCRIT 45.6 % (41-53); HEMOGLOBIN 14.1 g/dL (13.5-17.5); LYMPHOCYTES # (AUTO) 0.6 K/uL (1.0-4.8); LYMPHOCYTES % (AUTO) 4.7 % (22.0-44.0); MEAN CORPUSCULAR HEMOGLOBIN 27.6 pg (26.0-34.0); MEAN CORPUSCULAR HGB CONC 30.8 G/dL (31.0-37.0); MEAN CORPUSCULAR VOLUME 90 fL (80-100); MONOCYTES # (AUTO) 0.8 K/uL (0.1-1.0); MONOCYTES % (AUTO) 5.9 % (2.0-9.0); NEUTROPHILS # (AUTO) 11.7 K/uL (1.8-7.7); PLATELET COUNT (AUTO) 221 K/uL (150-450); RED CELL DISTRIBUTION WIDTH 14.8 % (11.5-14.5)
[2022-07-04 09:45] LABS: NEUTROPHILS % (AUTO) 87.6 % (40.0-70.0)
[2022-07-04 10:07] LABS: CALCIUM, TOTAL 8.8 mg/dL (8.8-10.5); CREATININE 2.15 mg/dL (0.60-1.30); POTASSIUM 4.1 mmol/L (3.5-5.1)
[2022-07-04 12:00] VITALS: BP 123/72
[2022-07-04] MEDS: INSULIN LISPRO 100 UNITS/ML SQ PRN (12:40)
[2022-07-04 15:21] LABS: GLUCOSE,POINT OF CARE 172 MG/DL (70-110)
[2022-07-04 16:00] VITALS: BP 124/76
[2022-07-04] MEDS ORDERED: LEVOFLOXACIN 750 MG/D5% WATER 150 ML IV SCH (16:00)
[2022-07-04 18:31] LABS: GLUCOSE,POINT OF CARE 107 MG/DL (70-110)
== END 2022-07-04 20:15 | DRG 64 ==
LOC: EMS 20:34 → 5S 06-19 17:32 → ICU 06-25 10:56
PROVIDERS: ADMIT Internal Medicine; ATTEND Internal Medicine
PROC: 5A09357 Assistance with Respiratory Ventilation, Less than 24 Consecutive Hours, Continuous Positive Airway Pressure (ICD-10-PCS; 2022-06-20)
PROC: 5A09357 Assistance with Respiratory Ventilation, Less than 24 Consecutive Hours, Continuous Positive Airway Pressure (ICD-10-PCS; 2022-06-21)
PROC: 5A09357 Assistance with Respiratory Ventilation, Less than 24 Consecutive Hours, Continuous Positive Airway Pressure (ICD-10-PCS; 2022-06-22)
PROC: 5A09357 Assistance with Respiratory Ventilation, Less than 24 Consecutive Hours, Continuous Positive Airway Pressure (ICD-10-PCS; 2022-06-23)
PROC: 5A09357 Assistance with Respiratory Ventilation, Less than 24 Consecutive Hours, Continuous Positive Airway Pressure (ICD-10-PCS; 2022-06-24)
PROC: 5A09357 Assistance with Respiratory Ventilation, Less than 24 Consecutive Hours, Continuous Positive Airway Pressure (ICD-10-PCS; 2022-06-25)
PROC: 5A09357 Assistance with Respiratory Ventilation, Less than 24 Consecutive Hours, Continuous Positive Airway Pressure (ICD-10-PCS; 2022-06-26)
PROC: 5A0935A Assistance with Respiratory Ventilation, Less than 24 Consecutive Hours, High Flow/Velocity Cannula (ICD-10-PCS; 2022-06-27)
PROC: 5A09357 Assistance with Respiratory Ventilation, Less than 24 Consecutive Hours, Continuous Positive Airway Pressure (ICD-10-PCS; 2022-06-27)
PROC: 5A0935A Assistance with Respiratory Ventilation, Less than 24 Consecutive Hours, High Flow/Velocity Cannula (ICD-10-PCS; 2022-06-28)
PROC: 5A0935A Assistance with Respiratory Ventilation, Less than 24 Consecutive Hours, High Flow/Velocity Cannula (ICD-10-PCS; 2022-06-29)
PROC: 5A0935A Assistance with Respiratory Ventilation, Less than 24 Consecutive Hours, High Flow/Velocity Cannula (ICD-10-PCS; 2022-06-30)
PROC: 5A0935A Assistance with Respiratory Ventilation, Less than 24 Consecutive Hours, High Flow/Velocity Cannula (ICD-10-PCS; principal; 2022-07-01)
PROC: 5A0935A Assistance with Respiratory Ventilation, Less than 24 Consecutive Hours, High Flow/Velocity Cannula (ICD-10-PCS; 2022-07-02)
PROC: 5A0935A Assistance with Respiratory Ventilation, Less than 24 Consecutive Hours, High Flow/Velocity Cannula (ICD-10-PCS; 2022-07-03)
DX: I63.511 Cerebral infarction due to unspecified occlusion or stenosis of right middle cerebral artery (principal); I50.43 Acute on chronic combined systolic (congestive) and diastolic (congestive) heart failure; J96.01 Acute respiratory failure with hypoxia; J18.9 Pneumonia, unspecified organism; J96.02 Acute respiratory failure with hypercapnia; I13.0 Hypertensive heart and chronic kidney disease with heart failure and stage 1 through stage 4 chronic kidney disease, or unspecified chronic kidney disease; E87.2 Acidosis; I42.9 Cardiomyopathy, unspecified; G81.04 Flaccid hemiplegia affecting left nondominant side; N04.9 Nephrotic syndrome with unspecified morphologic changes; N17.9 Acute kidney failure, unspecified; R41.4 Neurologic neglect syndrome; J44.0 Chronic obstructive pulmonary disease with (acute) lower respiratory infection; E11.22 Type 2 diabetes mellitus with diabetic chronic kidney disease; E66.01 Morbid (severe) obesity due to excess calories; E78.5 Hyperlipidemia, unspecified; E87.5 Hyperkalemia; I44.7 Left bundle-branch block, unspecified; N18.30 Chronic kidney disease, stage 3 unspecified; N40.0 Benign prostatic hyperplasia without lower urinary tract symptoms; R13.10 Dysphagia, unspecified; R29.810 Facial weakness; Z66 Do not resuscitate; T17.990A Other foreign object in respiratory tract, part unspecified in causing asphyxiation, initial encounter; Z20.822 Contact with and (suspected) exposure to COVID-19; X58.XXXA Exposure to other specified factors, initial encounter; Z88.0 Allergy status to penicillin; Y93.89 Activity, other specified; Y92.89 Other specified places as the place of occurrence of the external cause; Y99.8 Other external cause status
CPT/HCPCS: 36600; 51702; 70450; 70496; 70498; 71045; 71250; 72125; 74230; 76770; 80048; 80053; 80061; 81001; 81002; 81050; 82436; 82575; 82805; 82948; 82962; 83036; 83735; 83835; 83880; 84100; 84156; 84166; 84443; 84484; 85025; 85610; 85651; 85730; 86850; 86900; 86901; 87040; 92526; 92610; 92611; 93005; 93306; 94640; 94660; 94667; 94668; 94799; 97162; 99291; C8929; G0378; J0360; J1644; J1940; J1956; J3490; J7030; J7040; J7050; J7060; Q9967; 36415-L1; 36415-TC; C8928; J7613